=== PATIENT | male | born 1950 | race African-American/Black ===

== ENCOUNTER 2021-10-05 23:32 | Emergency (ER) | payer MEDICARE, MEDICAID ==
[~2021-10-05] VITALS: Ht 182.9 cm; Wt 114.0 kg
[2021-10-06] MEDS ORDERED: LEVETIRACETAM 500MG PREMIX 100 ML IV ONE (01:00)
[2021-10-06] MEDS ORDERED: SODIUM CHLORIDE 0.9% 1,000 ML IV ONE (01:00)
[2021-10-06 01:51] LABS: BASOPHILS % 0.2 % (0.0-2.0); EOSINOPHILS % 0.3 % (0.0-5.0); HEMATOCRIT. 42.2 % (42.0-52.0); HEMOGLOBIN. 13.8 g/dL (14.0-18.0); LYMPHOCYTES % 10.8 % (20.0-50.0); MEAN CORPUSCULAR HEMOGLOBIN 28.6 pg (28.0-32.0); MEAN CORPUSCULAR VOLUME 87.3 fL (80.0-94.0); MONOCYTES % 7.5 % (2.0-8.0); NEUTROPHILS % 81.2 % (40.0-76.0); PLATELET 112 x1000/uL (130-400); RED BLOOD CELL COUNT 4.83 mill/uL (4.7-6.1); RED CELL DISTRIBUTION WIDTH 13.3 % (11.6-14.6)
[2021-10-06 02:52] LABS: *AMPHETAMINES SCREEN URINE NEGATIVE (NEGATIVE); *BARBITURATES SCREEN URINE NEGATIVE (NEGATIVE); *BENZODIAZEPINES SCREEN URINE NEGATIVE (NEGATIVE); *COCAINE SCREEN URINE PRESUMTIVE POSITIVE (NEGATIVE); METHADONE URINE SCREEN NEGATIVE (NEGATIVE); OPIATES URINE SCREEN NEGATIVE (NEGATIVE)
[2021-10-06 02:53] LABS: CANNABINOID URINE SCREEN PRESUMTIVE POSITIVE (NEGATIVE); PHENCYCLIDINE URINE SCREEN NEGATIVE (NEGATIVE)
[2021-10-06 03:17] LABS: CHLORIDE 102 mEq/L (98-107)
[2021-10-06 03:20] LABS: ETHANOL BLOOD < 10 mg/dL
[2021-10-06] MEDS ORDERED: KEPP500 MT (03:26)
[2021-10-06 05:30] VITALS: BP 130/55
== END 2021-10-06 05:30 | disposition home or self-care (01) ==
LOC: ER 23:32
DX: R56.9 Unspecified convulsions (principal); F19.10 Other psychoactive substance abuse, uncomplicated; R07.89 Other chest pain
CPT/HCPCS: 36415; 70450; 71045; 73030; 80053; 80305; 80320; 85025; 93005; 96365; 99285; J1953; J7030; G0480

== ENCOUNTER 2021-12-21 06:01 | Inpatient (IN) | payer MEDICARE, MEDICAID ==
[~2021-12-21] VITALS: Ht 172.7 cm; Wt 90.7 kg
[~2021-12-21 06:01] MED LIST: KEPP500 MT
[2021-12-21] MEDS ORDERED: ACETAMINOPHEN 325MG TABLET PO STA (06:11)
[2021-12-21 06:56] LABS: CLARITY URINE CLEAR (CLEAR); COLOR URINE DARK YELLOW (YELLOW); KETONES URINE TRACE (NEGATIVE); LEUKOCYTE ESTERASE URINE NEGATIVE (NEGATIVE); NITRITE URINE NEGATIVE (NEGATIVE); OCCULT BLOOD URINE 1+ (NEGATIVE); PH URINE 6.5 (4.5-8.0); PROTEIN URINE 2+ (NEGATIVE); SPECIFIC GRAVITY URINE 1.023 (1.005-1.030); UROBILINOGEN URINE >8.0 E.U./dL (0.2-1.0)
[2021-12-21 06:57] LABS: HEMATOCRIT. 36.9 % (42.0-52.0); HEMOGLOBIN. 12.4 g/dL (14.0-18.0); MEAN CORPUSCULAR HEMOGLOBIN 29.4 pg (28.0-32.0); MEAN CORPUSCULAR VOLUME 87.3 fL (80.0-94.0); RED BLOOD CELL COUNT 4.22 mill/uL (4.7-6.1); RED CELL DISTRIBUTION WIDTH 12.4 % (11.6-14.6)
[2021-12-21 07:05] LABS: CHLORIDE 95 mEq/L (98-107)
[2021-12-21 07:25] LABS: PLATELET ESTIMATE DECREASED
[2021-12-21] MEDS ORDERED: AZITHROMYCIN 500MG/250ML 250 ML IV ONE (08:00)
[2021-12-21] MEDS ORDERED: CEFTRIAXONE 1 G PREMIX 50 ML IV ONE (08:00)
[2021-12-21] MEDS ORDERED: ASPIRIN 81MG TABLET PO ONE (08:15)
[2021-12-21] MEDS ORDERED: SODIUM CHLORIDE 0.9% 1,000 ML IV ONE (08:15)
[2021-12-21] MEDS ORDERED: ONDANSETRON HCL 4MG/2ML INJ IV PRN (09:15)
[2021-12-21] MEDS ORDERED: DEXTROSE 50% WATER 50ML SYRINGE IV PRN (09:15)
[2021-12-21] MEDS ORDERED: GUAIFENESIN 200MG/10ML SUGAR FREE UDC PO PRN (09:15)
[2021-12-21] MEDS ORDERED: IPRATROPIUM/ALBUTEROL 0.5-3(2.5)MG/3ML NEB HHN PRN (09:15)
[2021-12-21] MEDS ORDERED: DOCUSATE SODIUM 100MG CAPSULE PO PRN (09:15)
[2021-12-21] MEDS ORDERED: CLONIDINE 0.1MG TABLET PO PRN (09:15)
[2021-12-21] MEDS ORDERED: CEFTRIAXONE 1 G PREMIX 50 ML IV SCH (11:00)
[2021-12-21 11:40] VITALS: BP 163/85
[2021-12-21 12:00] VITALS: BP 163/85
[2021-12-21] MEDS: BLOOD SUGAR DIAGNOSTIC STRIP TEST SCH ×3 (12:20→21:58)
[2021-12-21] MEDS ORDERED: METO-385 PO (12:23)
[2021-12-21] MEDS ORDERED: ASPI-1406 PO (12:23)
[2021-12-21] MEDS ORDERED: METF-874 MT (12:24)
[2021-12-21] MEDS ORDERED: LEVO25TA2 PO (12:24)
[2021-12-21] MEDS: ASPIRIN 81MG EC TABLET PO SCH (14:32)
[2021-12-21] MEDS: ENOXAPARIN 40MG/0.4ML SYR SUBCUT SCH (14:33)
[2021-12-21] MEDS: AZITHROMYCIN 500MG in DEXTROSE 5% WATER 250ML IV SCH (14:33)
[2021-12-21] MEDS: METOPROLOL TARTRATE 25MG TABLET PO SCH ×2 (14:33→17:01)
[2021-12-21] MEDS: INSULIN LISPRO 100 UNITS/ML SUBCUT SCH ×3 (14:34→22:05)
[2021-12-21] MEDS ORDERED: CEFTRIAXONE 1,000 MG in DEXTROSE 5% WATER 50 ML IV SCH (15:00)
[2021-12-21 16:00] VITALS: BP 129/95
[2021-12-21] MEDS: ACETAMINOPHEN 325MG TABLET PO PRN (17:01)
[2021-12-21 20:00] VITALS: BP 99/47
[2021-12-21] MEDS: LEVETIRACETAM 500MG TABLET PO SCH (22:04)
[2021-12-21] MEDS: ATORVASTATIN CALCIUM 40MG TABLET PO SCH (22:04)
[2021-12-21 23:00] LABS: *AMPHETAMINES SCREEN URINE NEGATIVE (NEGATIVE); *BARBITURATES SCREEN URINE NEGATIVE (NEGATIVE); *BENZODIAZEPINES SCREEN URINE NEGATIVE (NEGATIVE); *COCAINE SCREEN URINE PRESUMTIVE POSITIVE (NEGATIVE); CANNABINOID URINE SCREEN PRESUMTIVE POSITIVE (NEGATIVE); METHADONE URINE SCREEN NEGATIVE (NEGATIVE); OPIATES URINE SCREEN NEGATIVE (NEGATIVE); PHENCYCLIDINE URINE SCREEN NEGATIVE (NEGATIVE)
[2021-12-22] VITALS: BP 116/59
[2021-12-22 04:00] VITALS: BP 154/80
[2021-12-22] MEDS: BLOOD SUGAR DIAGNOSTIC STRIP TEST SCH ×4 (06:41→21:29)
[2021-12-22 08:00] VITALS: BP 108/70
[2021-12-22 08:04] LABS: BASOPHILS % 0.1 % (0.0-2.0); EOSINOPHILS % 0.4 % (0.0-5.0); HEMATOCRIT. 31.6 % (42.0-52.0); HEMOGLOBIN. 10.8 g/dL (14.0-18.0); LYMPHOCYTES % 7.3 % (20.0-50.0); MEAN CORPUSCULAR VOLUME 87.6 fL (80.0-94.0); MEAN PLATELET VOLUME 12.1 fl (7.4-10.4); MONOCYTES % 10.3 % (2.0-8.0); NEUTROPHILS % 81.9 % (40.0-76.0); PLATELET 100 x1000/uL (130-400); RED BLOOD CELL COUNT 3.61 mill/uL (4.7-6.1); RED CELL DISTRIBUTION WIDTH 12.6 % (11.6-14.6)
[2021-12-22 08:47] LABS: CHLORIDE 96 mEq/L (98-107)
[2021-12-22] MEDS ORDERED: AZITHROMYCIN 500MG/250ML 250 ML IV SCH (09:00)
[2021-12-22] MEDS: INSULIN LISPRO 100 UNITS/ML SUBCUT SCH ×4 (09:49→21:00)
[2021-12-22] MEDS: LEVETIRACETAM 500MG TABLET PO SCH ×2 (09:51→21:00)
[2021-12-22] MEDS: CLOPIDOGREL 75MG TABLET PO SCH (09:51)
[2021-12-22] MEDS: ASPIRIN 81MG EC TABLET PO SCH (09:51)
[2021-12-22] MEDS: METOPROLOL TARTRATE 25MG TABLET PO SCH (09:52)
[2021-12-22] MEDS: ENOXAPARIN 40MG/0.4ML SYR SUBCUT SCH (09:53)
[2021-12-22] MEDS ORDERED: INSULIN GLARGINE 100 UNITS/ML SUBCUT SCH (10:00)
[2021-12-22] MEDS ORDERED: POTASSIUM CHLORIDE 20MEQ TABLET SR PO NR (11:00)
[2021-12-22 12:00] VITALS: BP 122/68
[2021-12-22] MEDS ORDERED: MAGNESIUM GLUCONATE 500MG TABLET PO NR (13:00)
[2021-12-22] MEDS ORDERED: MAGNESIUM 2 G PREMIX 50 ML IV NR (13:00)
[2021-12-22] MEDS: CEFTRIAXONE 1,000 MG in DEXTROSE 5% WATER 50 ML IV SCH (13:16)
[2021-12-22] MEDS: METOPROLOL SUCCINATE 50MG ER TABLET PO SCH (13:20)
[2021-12-22] MEDS: LEVOTHYROXINE SODIUM 25MCG TABLET PO SCH (13:20)
[2021-12-22] MEDS: AZITHROMYCIN 500MG in DEXTROSE 5% WATER 250ML IV SCH (14:19)
[2021-12-22] MEDS ORDERED: POLYETHYLENE GLYCOL 3350 (17GM) 1 DOSE PACK PO PRN (14:30)
[2021-12-22] MEDS ORDERED: GUAIFENESIN-DM 200MG-20MG/10ML UDC PO PRN (15:45)
[2021-12-22] MEDS ORDERED: RACEPINEPHRINE 2.25% 0.5ML NEB VIAL HHN PRN (15:45)
[2021-12-22] MEDS ORDERED: SODIUM CHLORIDE 10% FOR INH 15ML VIAL NEB INH SCH (15:45)
[2021-12-22 16:00] VITALS: BP 128/71
[2021-12-22] MEDS: DICLOFENAC SODIUM 1% GEL 50GM TOP SCH ×2 (17:11→21:29)
[2021-12-22] MEDS: ACETAMINOPHEN 325MG TABLET PO PRN (17:12)
[2021-12-22 20:00] VITALS: BP 147/83
[2021-12-22] MEDS: ATORVASTATIN CALCIUM 40MG TABLET PO SCH (21:29)
[2021-12-23] VITALS: BP 145/84
[2021-12-23 04:00] VITALS: BP 124/66
[2021-12-23 06:35] LABS: HEMATOCRIT. 31.5 % (42.0-52.0); HEMOGLOBIN. 10.5 g/dL (14.0-18.0); MEAN CORPUSCULAR HEMOGLOBIN 29.1 pg (28.0-32.0); MEAN PLATELET VOLUME 11.7 fl (7.4-10.4); PLATELET 129 x1000/uL (130-400); RED BLOOD CELL COUNT 3.62 mill/uL (4.7-6.1); RED CELL DISTRIBUTION WIDTH 12.6 % (11.6-14.6)
[2021-12-23] MEDS: BLOOD SUGAR DIAGNOSTIC STRIP TEST SCH (07:20)
[2021-12-23 08:00] VITALS: BP 153/75
[2021-12-23 08:12] LABS: CHLORIDE 98 mEq/L (98-107)
[2021-12-23] MEDS ORDERED: POTASSIUM CHLORIDE 20MEQ TABLET SR PO NR (08:45)
[2021-12-23] MEDS ORDERED: AZITHROMYCIN 500 MG TABLET PO SCH (09:00)
[2021-12-23] MEDS ORDERED: MAGNESIUM 2 G PREMIX 50 ML IV ONE (09:00)
[2021-12-23] MEDS: LEVETIRACETAM 500MG TABLET PO SCH (09:00)
[2021-12-23] MEDS: INSULIN LISPRO 100 UNITS/ML SUBCUT SCH (09:11)
[2021-12-23] MEDS: ASPIRIN 81MG EC TABLET PO SCH (09:12)
[2021-12-23] MEDS: LEVOTHYROXINE SODIUM 25MCG TABLET PO SCH (09:12)
[2021-12-23] MEDS: CLOPIDOGREL 75MG TABLET PO SCH (09:12)
[2021-12-23] MEDS: METOPROLOL SUCCINATE 50MG ER TABLET PO SCH (09:12)
[2021-12-23] MEDS: DICLOFENAC SODIUM 1% GEL 50GM TOP SCH (09:13)
[2021-12-23] MEDS: CEFTRIAXONE 1,000 MG in DEXTROSE 5% WATER 50 ML IV SCH (09:13)
[2021-12-23] MEDS ORDERED: INSULIN LISPRO 100 UNITS/ML SUBCUT SCH (12:20)
[2021-12-23 19:17] LABS: PLATELET ESTIMATE DECREASED
[2021-12-23] MEDS ORDERED: INSULIN GLARGINE 100 UNITS/ML SUBCUT SCH (21:00)
== END 2021-12-23 12:50 | disposition left against medical advice (07) | DRG 871 ==
LOC: ER 06:27 → EDBEDREQTM 08:12 → EDBEDREQ 08:12 → ENRESERV 09:30 → 6WST 12:03
PROVIDERS: ADMIT Internal Medicine; ATTEND Internal Medicine
DX: A41.9 Sepsis, unspecified organism (principal); J18.9 Pneumonia, unspecified organism; J96.00 Acute respiratory failure, unspecified whether with hypoxia or hypercapnia; E44.1 Mild protein-calorie malnutrition; E87.1 Hypo-osmolality and hyponatremia; R04.2 Hemoptysis; G40.909 Epilepsy, unspecified, not intractable, without status epilepticus; I50.9 Heart failure, unspecified; D64.9 Anemia, unspecified; E11.65 Type 2 diabetes mellitus with hyperglycemia; E89.0 Postprocedural hypothyroidism; E80.6 Other disorders of bilirubin metabolism; F14.10 Cocaine abuse, uncomplicated; Z20.822 Contact with and (suspected) exposure to COVID-19; Z53.29 Procedure and treatment not carried out because of patient's decision for other reasons; F17.200 Nicotine dependence, unspecified, uncomplicated; I25.10 Atherosclerotic heart disease of native coronary artery without angina pectoris; Z79.899 Other long term (current) drug therapy; Z95.5 Presence of coronary angioplasty implant and graft; Z82.49 Family history of ischemic heart disease and other diseases of the circulatory system; Z86.73 Personal history of transient ischemic attack (TIA), and cerebral infarction without residual deficits; Z87.01 Personal history of pneumonia (recurrent); Z79.82 Long term (current) use of aspirin; Z68.30 Body mass index [BMI] 30.0-30.9, adult
CPT/HCPCS: 36415; 71045; 80048; 80053; 80061; 80305; 81003; 82962; 83036; 83605; 83735; 83880; 84145; 84484; 85025; 87116; 87426; 87804; 93005; 93306; 99291; J0456; J0696; J1650; J1815; J3475; J7030; J7060; J7131

== ENCOUNTER 2025-07-14 18:14 | Emergency (ER) | payer MEDICARE, MEDICAID ==
[~2025-07-14] VITALS: Ht 177.8 cm; Wt 60.0 kg
[~2025-07-14 18:14] MED LIST changes: +ASPI-1406 PO; +LEVO25TA2 PO; +METF-1150 MT; +METO-385 PO
[2025-07-14 18:21] VITALS: O2SAT 99
[2025-07-14] MEDS: ACETAMINOPHEN 1000MG/100ML 100 ML IV ONE (19:15)
[2025-07-14] MEDS: ONDANSETRON HCL 4MG/2ML INJ IV ONE (19:56)
[2025-07-14] MEDS: KETOROLAC 15MG/ML VIAL IV ONE (20:20)
[2025-07-14 20:49] LABS: BASOPHILS % 0.3 % (0.0-2.0); EOSINOPHILS % 0.4 % (0.0-5.0); HEMATOCRIT. 33.9 % (42.0-52.0); HEMOGLOBIN. 11.1 g/dL (14.0-18.0); LYMPHOCYTES % 10.7 % (20.0-50.0); MEAN PLATELET VOLUME 10.5 fl (7.4-10.4); MONOCYTES % 4.7 % (2.0-8.0); NEUTROPHILS % 83.9 % (40.0-76.0); PLATELET 152 x1000/uL (130-400); RED BLOOD CELL COUNT 4.03 mill/uL (4.7-6.1); RED CELL DISTRIBUTION WIDTH 15.6 % (11.6-14.6)
[2025-07-14 21:01] LABS: CREATININE 1.0 mg/dL (0.6-1.3); UREA NITROGEN BLOOD 12 mg/dL (9-23)
[2025-07-14 21:03] LABS: ASPARTATE AMINOTRANSFERASE 27 IU/L (<34); BILIRUBIN DIRECT 0.3 mg/dL (<=3.0); BILIRUBIN TOTAL 0.8 mg/dL (0.1-1.0); PROTEIN TOTAL 7.5 g/dL (6.0-8.3)
[2025-07-14 21:30] LABS: TROPONIN I HIGH SENSITIVITY 40 ng/L (3.0-53)
[2025-07-14] MEDS: MORPHINE SULFATE 4 MG/ML INJ (FOR IV/IM USE) IV ONE (22:31)
[2025-07-14 22:43] LABS: GLUCOSE URINE NEGATIVE (NEGATIVE); KETONES URINE 1+ (NEGATIVE); LEUKOCYTE ESTERASE URINE TRACE (NEGATIVE); NITRITE URINE NEGATIVE (NEGATIVE); OCCULT BLOOD URINE NEGATIVE (NEGATIVE); PH URINE 6.5 (4.5-8.0); PROTEIN URINE 3+ (NEGATIVE); SPECIFIC GRAVITY URINE 1.028 (1.005-1.030); UROBILINOGEN URINE 2.0 E.U./dL (0.2-1.0)
[2025-07-14 23:24] LABS: COLOR URINE YELLOW (YELLOW)
[2025-07-14 23:25] LABS: CLARITY URINE HAZY (CLEAR)
[2025-07-14 23:26] LABS: RBC URINE NONE SEEN /hpf (0-2)
[2025-07-14 23:27] LABS: BACTERIA URINE TRACE; HYALINE CASTS URINE 0-5 /lpf; MUCUS URINE TRACE /lpf (NONE/TRACE); SQUAMOUS EPITHELIAL CELL URINE RARE /lpf (RARE/1+)
[2025-07-14] MEDS: IOHEXOL-300 100 ML BOTTLE ONE (23:44)
[2025-07-15] MEDS ORDERED: NAPR-681 GT
[2025-07-15] MEDS ORDERED: CEFP100S5 GT
[2025-07-15 01:22] VITALS: BP 143/78; PULSE 80; RESP 18; TEMP 36.9; O2SAT 99
== END 2025-07-15 01:23 | disposition home or self-care (01) ==
LOC: ER 18:14
DX: N39.0 Urinary tract infection, site not specified (principal); E11.9 Type 2 diabetes mellitus without complications; I10 Essential (primary) hypertension; J44.9 Chronic obstructive pulmonary disease, unspecified; Z79.1 Long term (current) use of non-steroidal anti-inflammatories (NSAID); R51.9 Headache, unspecified; Z79.84 Long term (current) use of oral hypoglycemic drugs; Z93.1 Gastrostomy status
CPT/HCPCS: 99285; 70450; 96374; 96375; 71045; 80076; 80048; 81003; 82140; 83690; 83735; 85025; 84484; 36415; 74177; 93005; J1885; Q9967; J2405; J2270; A4606; J0131